=== PATIENT | female | born 1960 | race Two or more races ===

== ENCOUNTER 2022-02-21 07:15 | Inpatient (IN) | payer OTHER ==
[~2022-02-21] VITALS: Ht 165.1 cm; Wt 102.1 kg
[~2022-02-21 07:15] MED LIST: ATENOLOL25 MG PO; ATORVASTATIN CA10 MG PO; CLOPIDOGREL PO; HUMALOG MIX 75/23 M1; INTEGRA PLUS C1 EACH PO; JANUMET PO; LOSARTAN-HCTZ1 EAC1 PO; OXYC1TAB9 PO; SYNTHROID200 MCG PO; XARELTO10 MG PO; [UNRECOGNIZED DRUG - OTHER] PO; [UNRECOGNIZED DRUG - OTHER] PO
[2022-02-21] MEDS ORDERED: HUMALOG100 UNIT/1 ×2 (08:18→08:19)
[2022-02-21] MEDS ORDERED: JANUMET 50-1,01 EACH PO (08:19)
[2022-02-21] MEDS ORDERED: LEVOXYL150 MCG PO (08:20)
[2022-02-21] MEDS ORDERED: PLAVIX75 MG PO (08:21)
[2022-02-21] MEDS ORDERED: TOPROL XL50 M1 PO (08:21)
[2022-02-21] MEDS ORDERED: IRBESARTAN-HCT1 EACH PO (08:21)
[2022-02-25] MEDS ORDERED: HUMALOG MI100 UNIT/2 (09:36)
[2022-02-27] MEDS ORDERED: OXYC1TAB9 PO (08:07)
[2022-02-27] MEDS ORDERED: INTEGRA PLUS C1 EACH PO (08:07)
[2022-02-27] MEDS ORDERED: XARELTO10 MG PO (08:07)
[2022-02-27] MEDS ORDERED: BACTRIM DS TAB1 EACH PO (08:07)
== END 2022-02-27 12:16 | DRG 470 ==
LOC: O/R 02-25 06:36 → SURH 02-25 07:00 → O/R 02-25 09:02 → SURG 02-25 10:55
PROVIDERS: ADMIT Orthopaedic Surgery Sports Medicine; ATTEND Orthopaedic Surgery Sports Medicine
PROC: 0SRD0J9 Replacement of Left Knee Joint with Synthetic Substitute, Cemented, Open Approach (ICD-10-PCS; principal; 2022-02-25 07:00)
DX: M17.12 Unilateral primary osteoarthritis, left knee (principal); I10 Essential (primary) hypertension; E10.9 Type 1 diabetes mellitus without complications; Z79.4 Long term (current) use of insulin; I25.10 Atherosclerotic heart disease of native coronary artery without angina pectoris; Z20.822 Contact with and (suspected) exposure to COVID-19